=== PATIENT | male | born 1965 | race African-American/Black ===

== ENCOUNTER 2019-04-21 20:54 | Emergency (ER) | payer SELFPAY ==
[~2019-04-21] VITALS: Ht 175.3 cm; Wt 73.0 kg
[2019-04-21 21:42] VITALS: BP 133/77
--- NOTE | 2019-04-21 23:03 | PHYS DOC ---
Past Medical History Past Medical History: No Pertinent History Additional Past Surgical Histo: HERNIA 1999 Smoking Status: Current Every Day Smoker Alcohol Use: None Adult General Chief Complaint Chief Complaint: SEXUALLY TRANSMITTED DISEASE HPI HPI Patient is a 53 year old male patient who presents the ED today concerned he could have an STD. Is requesting treatment. Girlfriend is in the ED to for the same complaint. Review of Systems Review of Systems Constitutional: Denies fever or chills [] GI: Denies abdominal pain, nausea, vomiting, bloody stools or diarrhea [] : Reports concern for STDs. Denies dysuria or hematuria [] Musculoskeletal: Denies back pain or joint pain [] Integument: Denies rash or skin lesions [] Neurologic: Denies headache, focal weakness or sensory changes [] All other systems were reviewed and found to be within normal limits, except as documented in this note. Current Medications Current Medications Current Medications Medications (Trade) Dose Ordered Sig/Benitez Start Time Stop Time Status Last Admin Dose Admin Azithromycin (Zithromax) 1,000 mg 1X ONCE 04/21/19 23:00 04/21/19 23:01 Ceftriaxone Sodium (Rocephin Im) 250 mg 1X ONCE 04/21/19 23:00 04/21/19 23:01 Metronidazole (Flagyl) 2,000 mg 1X ONCE 04/21/19 23:00 04/21/19 23:01 Allergies Allergies Allergies Coded Allergies Type Severity Reaction Last Updated Verified No Known Drug Allergies 04/21/19 No Physical Exam Physical Exam Constitutional: Well developed, well nourished, no acute distress, non-toxic appearance. [] HENT: Normocephalic, atraumatic, bilateral external ears normal, oropharynx moist, no oral exudates, nose normal. [] Eyes: PERRLA, EOMI, conjunctiva normal, no discharge. [] Neck: Normal range of motion, no tenderness, supple, no stridor. [] Cardiovascular:Heart rate regular rhythm, no murmur [] Lungs & Thorax: Bilateral breath sounds clear to auscultation [] Abdomen: Bowel sounds normal, soft, no tenderness, no masses, no pulsatile masses. [] Skin: Warm, dry, no erythema, no rash. [] Back: No tenderness, no CVA tenderness. [] Extremities: No tenderness, no cyanosis, no clubbing, ROM intact, no edema. [] Neurologic: Alert and oriented X 3, normal motor function, normal sensory function, no focal deficits noted. [] Psychologic: Affect normal, judgement normal, mood normal. [] Current Patient Data Vital Signs Vital Signs Date Time Temp Pulse Resp B/P (MAP) Pulse Ox O2 Delivery O2 Flow Rate FiO2 04/21/19 21:42 97.6 74 16 133/77 (95) 96 Room Air 97.6 EKG EKG [] Radiology/Procedures Radiology/Procedures [] Course & Med Decision Making Course & Med Decision Making Pertinent Labs and Imaging studies reviewed. (See chart for details) Patient was treated for STDs and discharge. Education provided. Dragon Disclaimer [employer] Disclaimer This electronic medical record was generated, in whole or in part, using a voice recognition dictation system. Departure Departure Impression: Primary Impression: Concern about STD in male without diagnosis Disposition: 01 HOME, SELF-CARE Condition: STABLE Referrals: NO PCP (PCP) Follow-up with the health department Patient Instructions: Sexually Transmitted Disease, [id number] Additional Instructions: You were treated for sexually transmitted diseases. Use protection at all times. Consider not having intercourse for 1 week. Follow-up with the health department for further STD concerns. BIA WOLF APRN Apr 21, 2019 23:03
[2019-04-21] MEDS: metroNIDAZOLE 500 MG TABLET PO ONE (23:11)
[2019-04-21] MEDS: cefTRIAXone IM 250 MG VIAL IM ONE (23:12)
[2019-04-21] MEDS: AZITHROMYCIN 250 MG TABLET. PO ONE (23:13)
== END 2019-04-21 23:17 | disposition home or self-care (01) ==
LOC: ER 20:54
DX: Z20.2 Contact with and (suspected) exposure to infections with a predominantly sexual mode of transmission (principal); F17.200 Nicotine dependence, unspecified, uncomplicated
CPT/HCPCS: 96372; 99283; J0696